=== PATIENT | male | born 1965 | race African-American/Black ===

== ENCOUNTER 2018-08-10 08:19 | Emergency (ER) | payer OTHER ==
[2018-08-10] MEDS: ONDANSETRON (ODT) 4 MG TAB ODT (09:05)
== END 2018-08-10 09:35 | disposition home or self-care (01) ==
LOC: FTE 08:19
DX: R11.10 Vomiting, unspecified (principal); E11.9 Type 2 diabetes mellitus without complications; F17.210 Nicotine dependence, cigarettes, uncomplicated
CPT/HCPCS: 99283; Z7502